=== PATIENT | male | born 1950 | race Caucasian/White ===

== ENCOUNTER 2021-01-18 15:49 | Outpatient (CLI) | payer MEDICARE ==
[2021-01-18 17:45] LABS: Hemoglobin 12.8 g/dL (13.5-17.5); Mean Corpuscular Hemoglobin 29.8 pg (27.0-33.0); Mean Corpuscular Volume 85.3 fl (81.2-95.1); Mean Platelet Volume 9.7 fl (7.4-10.4); Platelet Count 257 10x3/uL (150-450); RBC Distribution Width 12.6 % (11.5-14.5); Red Blood Cell (RBC) Count 4.29 10x6/uL (4.32-5.72)
[2021-01-18 17:53] LABS: PTT 24.3 sec (22.0-33.0); Prothrombin Time 10.6 sec (9.5-12.1)
[2021-01-19 08:18] LABS: SARS-CoV-2 PCR by NAA Not Detected (NotDetected)
== END 2021-01-18 15:50 | disposition home or self-care (01) ==
LOC: LABBT 15:49
PROVIDERS: ATTEND Neurological Surgery
DX: Z01.818 Encounter for other preprocedural examination (principal); Z20.822 Contact with and (suspected) exposure to COVID-19
CPT/HCPCS: 85027; 85610; 85730; 93005; U0003; U0005; 93010

== ENCOUNTER 2021-01-21 07:10 | Inpatient (IN) | payer MEDICARE ==
[2021-01-20 14:37] VITALS: BMI 33.3
[2021-01-21] MEDS ORDERED: ceFAZolin 2 GM/DEX 5% 100 ML BAG ONE (07:38)
[2021-01-21] MEDS ORDERED: Thrombin 5000 UNITS/5 ML VIAL ONE (09:20)
[2021-01-21] MEDS ORDERED: EPINEPHrine 1 MG/ML AMP ONE (09:20)
[2021-01-21] MEDS ORDERED: Bupivacaine PF 0.5% 30 ML VIAL ONE (09:20)
[2021-01-21] MEDS ORDERED: Neomycin-Polymyxin 1 ML AMP ONE (09:20)
[2021-01-21] MEDS ORDERED: HYDROcodone/Acetaminophen 10/325 mg Tablet PO PRN (09:42)
[2021-01-21] MEDS ORDERED: tiZANidine HCl 4 MG TAB PO PRN (09:42)
[2021-01-21] MEDS ORDERED: Promethazine HCl 12.5 MG SUPP PR PRN (09:42)
[2021-01-21] MEDS ORDERED: Mag-Al 1200 mg/1200 mg/30 ML UDCUP PO PRN (09:42)
[2021-01-21] MEDS ORDERED: Acetaminophen/Codeine 30-300mg Tablet PO PRN (09:42)
[2021-01-21] MEDS ORDERED: HYDROcodone/Acetaminophen 7.5/325 mg Tablet PO PRN (09:42)
[2021-01-21] MEDS ORDERED: diphenhydrAMINE 25 MG CAP PO PRN (09:42)
[2021-01-21] MEDS ORDERED: Ondansetron PF 4 MG/2 ML Vial IVP PRN (09:42)
[2021-01-21] MEDS ORDERED: Morphine 2 MG/ML VIAL SLOW IVP PRN (09:42)
[2021-01-21] MEDS ORDERED: Promethazine HCl 25 MG/ML VIAL IM PRN ×2 (09:42→16:00)
[2021-01-21] MEDS ORDERED: Bisacodyl 10 MG SUPP PR PRN (09:42)
[2021-01-21] MEDS ORDERED: Fentanyl 100 MCG/2 ML VIAL ONE (09:57)
[2021-01-21] MEDS ORDERED: Ketorolac Tromethamine 30 MG/ML VIAL ONE (10:11)
[2021-01-21] MEDS ORDERED: Dexamethasone 20 MG/5 ML VIAL ONE (10:11)
[2021-01-21] MEDS ORDERED: Lidocaine 2% PF 5 ML VIAL ONE (10:11)
[2021-01-21] MEDS ORDERED: Ondansetron PF 4 MG/2 ML Vial ONE (10:11)
[2021-01-21] MEDS ORDERED: PROPOFOL 200 MG/20 ML VIAL ONE (10:11)
[2021-01-21] MEDS ORDERED: Rocuronium Bromide 10 MG/ML (10ML VIAL) ONE (10:11)
[2021-01-21] MEDS ORDERED: PHENYLEPHRINE-NS 100 MCG/ML 10 ML SYRINGE ONE ×2 (10:11→14:55)
[2021-01-21] MEDS ORDERED: diphenhydrAMINE 50 MG/ML VIAL ONE (10:11)
[2021-01-21] MEDS ORDERED: Phenylephrine 10 MG/ML VIAL ONE ×2 (12:00→12:21)
[2021-01-21] MEDS ORDERED: Morphine 10 MG/ML VIAL ONE (12:07)
[2021-01-21] MEDS ORDERED: Albumin 5% 500 ML ONE (12:24)
[2021-01-21] MEDS ORDERED: SUGAMMADEX SODIUM 200 MG/2 ML VIAL ONE ×2 (14:31→14:45)
[2021-01-21] MEDS ORDERED: Promethazine HCl 25 MG/ML VIAL IVPB PRN (16:00)
[2021-01-21] MEDS ORDERED: ceFAZolin Sodium/D5W 2 GM in Premix Bag 1 BAG IVPB SCH (16:00)
[2021-01-21] MEDS ORDERED: PACU-Morphine 4MG/ML VIAL SLOW IVP PRN (16:00)
[2021-01-21] MEDS ORDERED: Ondansetron HCl/PF 4 MG/2 ML Vial IVP PRN (16:00)
[2021-01-21] MEDS ORDERED: HYDROmorphone 2 MG/ML VIAL SLOW IVP PRN (16:00)
[2021-01-21] MEDS: ceFAZolin Sodium/D5W 2 GM in Premix Bag 1 BAG IVPB SCH (21:00)
[2021-01-21] MEDS: Gabapentin 300 MG CAP PO SCH (21:01)
[2021-01-21] MEDS: Lisinopril/Hydrochlorothiazide 20/25 mg Tablet PO SCH (21:02)
[2021-01-21] MEDS: metFORMIN 500 MG TAB PO SCH (21:02)
[2021-01-21] MEDS: glipiZIDE 5 MG TAB PO SCH (21:02)
[2021-01-21] MEDS: Alogliptin 25 MG TAB PO SCH (21:54)
[2021-01-22] MEDS: traMADol HCl 50 MG TAB PO PRN ×3 (01:09→16:56)
[2021-01-22] MEDS: ceFAZolin Sodium/D5W 2 GM in Premix Bag 1 BAG IVPB SCH (05:17)
[2021-01-22] MEDS: glipiZIDE 5 MG TAB PO SCH ×2 (08:58→21:04)
[2021-01-22] MEDS: metFORMIN 500 MG TAB PO SCH ×2 (08:58→21:03)
[2021-01-22] MEDS: Acetaminophen 325 MG TAB PO PRN ×2 (08:58→16:57)
[2021-01-22] MEDS ORDERED: Dextrose 50% Abboject 50 ML SYRINGE SLOW IVP PRN (12:57)
[2021-01-22] MEDS ORDERED: Dextrose 5% in Water 1,000 ML IV PRN (12:57)
[2021-01-22] MEDS: HumaLOG 300 UNITS/3 ML VIAL SC PRN (17:02)
[2021-01-22] MEDS: Gabapentin 300 MG CAP PO SCH (21:03)
[2021-01-22] MEDS: Lisinopril/Hydrochlorothiazide 20/25 mg Tablet PO SCH (21:07)
[2021-01-22] MEDS: Alogliptin 25 MG TAB PO SCH (22:35)
[2021-01-23] MEDS: traMADol HCl 50 MG TAB PO PRN ×2 (05:19→11:02)
[2021-01-23] MEDS ORDERED: Polyethylene Glycol 3350 17 GM Packet PO PRN (07:36)
[2021-01-23] MEDS: metFORMIN 500 MG TAB PO SCH (08:13)
[2021-01-23] MEDS: glipiZIDE 5 MG TAB PO SCH (08:13)
[2021-01-23] MEDS: HumaLOG 300 UNITS/3 ML VIAL SC PRN (12:16)
[2021-01-23 12:20] VITALS: BP 104/65; TEMP 98.2
== END 2021-01-23 14:25 | DRG 516 ==
LOC: SDC 07:10 → SURG B 09:42
PROVIDERS: ADMIT Neurological Surgery; ATTEND Neurological Surgery
PROC: 01NB0ZZ Release Lumbar Nerve, Open Approach (ICD-10-PCS; principal; 2021-01-21)
DX: M48.062 Spinal stenosis, lumbar region with neurogenic claudication (principal); G99.2 Myelopathy in diseases classified elsewhere; G82.20 Paraplegia, unspecified; M71.38 Other bursal cyst, other site; E11.9 Type 2 diabetes mellitus without complications; M19.90 Unspecified osteoarthritis, unspecified site; G89.29 Other chronic pain; I10 Essential (primary) hypertension; M16.10 Unilateral primary osteoarthritis, unspecified hip; Z98.890 Other specified postprocedural states; Z79.899 Other long term (current) drug therapy; Z79.84 Long term (current) use of oral hypoglycemic drugs; Z82.3 Family history of stroke; Z87.891 Personal history of nicotine dependence
CPT/HCPCS: 36415; 36416; 76000; 86850; 86900; 86901; 88304; J0171; J1100; J1200; J1815; J1885; J2001; J2270; J2370; J2405; J2704; J3010; J3370; P9045; S0020

== ENCOUNTER 2021-02-10 14:17 | Outpatient (CLI) | payer MEDICARE | END 2021-02-10 14:18 | disposition home or self-care (01) | LOC: TBSIIMAG 14:17 | PROVIDERS: ATTEND Neurological Surgery | DX: M48.062 Spinal stenosis, lumbar region with neurogenic claudication (principal); M51.36 Other intervertebral disc degeneration, lumbar region; M47.816 Spondylosis without myelopathy or radiculopathy, lumbar region; M48.07 Spinal stenosis, lumbosacral region; M51.34 Other intervertebral disc degeneration, thoracic region; Z98.890 Other specified postprocedural states | CPT/HCPCS: 72148 ==

== ENCOUNTER 2021-02-13 12:38 | Emergency (ER) | payer MEDICARE ==
[2021-02-13] MEDS ORDERED: Acetaminophen 500 MG TAB ONE (13:18)
[2021-02-13 13:46] LABS: #Lymphocytes 0.7 thou/uL (1.20-3.40); #Monocytes 0.4 thou/uL (0.11-0.59); #Neutrophils 7.3 thou/uL (1.40-6.50); %Basophils 0.1 % (0.0-1.0); %Eosinophils 0.3 % (0.0-10.0); %Lymphocytes 8.3 % (21.0-51.0); %Monocytes 4.3 % (0.0-10.0); Hemoglobin 10.2 g/dL (14.0-18.0); Mean Corpuscular HGB CONC 35.5 g/dL (32.0-36.0); Mean Corpuscular Hemoglobin 30.6 pg (27.0-31.0); Mean Corpuscular Volume 86.1 fL (78.0-98.0); Mean Platelet Volume 6.4 fL (7.4-10.4); Platelet Count 379 thou/uL (130-400); RBC Distribution Width 12.1 % (11.5-14.5); Red Blood Cell (RBC) Count 3.33 mill/uL (4.70-6.10); White Blood Cell (WBC) Count 8.4 thou/uL (4.8-10.8)
[2021-02-13] MEDS ORDERED: Morphine 10 MG/ML VIAL ONE (13:51)
[2021-02-13 13:57] LABS: ALT (SGPT) 26 U/L (8-55); AST (SGOT) 16 U/L (5-34); Albumin 3.8 g/dL (3.4-4.8); Alkaline Phosphatase 71 U/L (40-110); Anion Gap 16 mmol/L (10-20); BUN (Urea Nitrogen) 43 mg/dL (8.4-25.7); Bilirubin, Total 0.5 mg/dL (0.2-1.2); Calc. Creatinine Clearance 0 mL/min (70-130); Calcium 9.2 mg/dL (7.8-10.44); Carbon Dioxide 24 mmol/L (23-31); Chloride 95 mmol/L (98-107); Globulin 3.1 g/dL (2.4-3.5); Glucose 178 mg/dL (80-115); Potassium 4.7 mmol/L (3.5-5.1); Protein, Total 6.9 g/dL (5.8-8.1); Sodium 130 mmol/L (136-145)
== END 2021-02-13 17:00 | disposition home or self-care (01) ==
LOC: ERS 12:38
DX: M51.36 Other intervertebral disc degeneration, lumbar region (principal); N31.9 Neuromuscular dysfunction of bladder, unspecified; R15.9 Full incontinence of feces; I10 Essential (primary) hypertension; E11.9 Type 2 diabetes mellitus without complications; Z87.891 Personal history of nicotine dependence; Z79.84 Long term (current) use of oral hypoglycemic drugs; Z79.899 Other long term (current) drug therapy
CPT/HCPCS: 72146; 72148; 80053; 85025; 96374; J2270

== ENCOUNTER 2021-02-24 13:38 | Inpatient (IN) | payer MEDICARE ==
[2021-02-24] MEDS ORDERED: Dextrose 50% Abboject 50 ML SYRINGE SLOW IVP PRN (18:40)
[2021-02-24] MEDS ORDERED: Dextrose 5% in Water 1,000 ML IV PRN (18:40)
[2021-02-24] MEDS ORDERED: HYDROcodone/Acetaminophen 10/325 mg Tablet PO PRN (18:42)
[2021-02-24] MEDS ORDERED: Senokot S 8.6-50 MG TAB PO PRN (18:42)
[2021-02-24] MEDS ORDERED: Acetaminophen 325 MG TAB PO PRN (18:42)
[2021-02-24 19:15] LABS: #Lymphocytes 0.9 thou/uL (1.20-3.40); #Monocytes 0.7 thou/uL (0.11-0.59); #Neutrophils 7.2 thou/uL (1.40-6.50); %Basophils 0.2 % (0.0-1.0); %Eosinophils 0.1 % (0.0-10.0); %Lymphocytes 9.9 % (21.0-51.0); %Monocytes 7.9 % (0.0-10.0); %Neutrophils 81.8 % (42.0-75.0); Hemoglobin 10.6 g/dL (14.0-18.0); Mean Corpuscular HGB CONC 35.2 g/dL (32.0-36.0); Mean Corpuscular Hemoglobin 30.6 pg (27.0-31.0); Mean Corpuscular Volume 87.1 fL (78.0-98.0); Mean Platelet Volume 7.3 fL (7.4-10.4); Platelet Count 209 thou/uL (130-400); Red Blood Cell (RBC) Count 3.48 mill/uL (4.70-6.10); White Blood Cell (WBC) Count 8.8 thou/uL (4.8-10.8)
[2021-02-24 19:33] LABS: ALT (SGPT) 16 U/L (8-55); AST (SGOT) 10 U/L (5-34); Albumin 3.2 g/dL (3.4-4.8); Alkaline Phosphatase 69 U/L (40-110); Anion Gap 13 mmol/L (10-20); BUN (Urea Nitrogen) 67 mg/dL (8.4-25.7); Bilirubin, Total 0.6 mg/dL (0.2-1.2); Calc. Creatinine Clearance 64 mL/min (70-130); Carbon Dioxide 21 mmol/L (23-31); Chloride 97 mmol/L (98-107); Globulin 2.4 g/dL (2.4-3.5); Glucose 295 mg/dL (80-115); Potassium 4.6 mmol/L (3.5-5.1); Protein, Total 5.6 g/dL (5.8-8.1); Sodium 126 mmol/L (136-145)
[2021-02-24] MEDS ORDERED: Enoxaparin Sodium 40 MG/0.4 ML SYRINGE SC SCH (21:00)
[2021-02-24] MEDS: Sodium Chloride 0.9% 1,000 ML IV SCH (21:43)
[2021-02-24] MEDS: HumaLOG 300 UNITS/3 ML VIAL SC PRN (21:53)
[2021-02-24] MEDS ORDERED: Gabapentin 300 MG CAP PO SCH (22:00)
[2021-02-25 00:34] LABS: Anion Gap 10 mmol/L (10-20); BUN (Urea Nitrogen) 64 mg/dL (8.4-25.7); Calc. Creatinine Clearance 74 mL/min (70-130); Calcium 8.2 mg/dL (7.8-10.44); Carbon Dioxide 24 mmol/L (23-31); Chloride 98 mmol/L (98-107); Glucose 224 mg/dL (80-115); Potassium 4.6 mmol/L (3.5-5.1); Sodium 127 mmol/L (136-145)
[2021-02-25 04:12] LABS: Bacteria/HPF 4+ HPF (None Seen); Bilirubin Negative (Negative); Blood, Urine 2+ (Negative); Clarity Clear (Clear); Glucose, Urine (Dipstick) Normal (Negative); Ketone, Urine Negative (Negative); Leukocyte 25 Leu/uL (Negative); Nitrite Negative (Negative); Protein, Urine (Dipstick) Negative (Neg-Trace); Specific Gravity, Urine 1.013 (1.002-1.036); Squamous Epithelial None Seen HPF (0-3); Urobilinogen Normal mg/dL (Less than 2)
[2021-02-25 06:30] LABS: #Monocytes 0.6 thou/uL (0.11-0.59); %Basophils 0.6 % (0.0-1.0); %Eosinophils 0.5 % (0.0-10.0); %Monocytes 9.1 % (0.0-10.0); %Neutrophils 74.8 % (42.0-75.0); Mean Corpuscular HGB CONC 34.1 g/dL (32.0-36.0); Mean Corpuscular Hemoglobin 29.9 pg (27.0-31.0); Mean Corpuscular Volume 87.7 fL (78.0-98.0); Mean Platelet Volume 7.3 fL (7.4-10.4); Platelet Count 203 thou/uL (130-400); RBC Distribution Width 12.9 % (11.5-14.5); Red Blood Cell (RBC) Count 3.34 mill/uL (4.70-6.10); White Blood Cell (WBC) Count 6.7 thou/uL (4.8-10.8)
[2021-02-25 06:36] LABS: Hemoglobin A1c 6.9 % (4.0-6.0)
[2021-02-25 06:53] LABS: Anion Gap 11 mmol/L (10-20); BUN (Urea Nitrogen) 54 mg/dL (8.4-25.7); Calc. Creatinine Clearance 86 mL/min (70-130); Calcium 8.3 mg/dL (7.8-10.44); Carbon Dioxide 23 mmol/L (23-31); Chloride 99 mmol/L (98-107); Glucose 187 mg/dL (80-115); Iron 36 ug/dL (65-175); Iron Binding Capacity, Total 241 mcg/dL (261-462); Potassium 4.7 mmol/L (3.5-5.1); Sodium 128 mmol/L (136-145)
[2021-02-25] MEDS: Polyethylene Glycol 3350 17 GM Packet PO SCH (08:44)
[2021-02-25] MEDS: HYDROcodone/Acetaminophen 10/325 mg Tablet PO PRN ×2 (08:45→16:56)
[2021-02-25] MEDS: Enoxaparin Sodium 30 MG/0.3 ML SYRINGE SC SCH (08:45)
[2021-02-25] MEDS ORDERED: Gabapentin 300 MG CAP PO SCH ×2 (09:45→21:00)
[2021-02-25] MEDS ORDERED: Lidocaine 5% Patch TD SCH (09:45)
[2021-02-25] MEDS: Lidocaine 5% Patch TD SCH ×2 (10:45→10:49)
[2021-02-25] MEDS: Sodium Chloride 0.9% 1,000 ML IV SCH (10:48)
[2021-02-25] MEDS ORDERED: Iron, Sodium Ferric Gluconate 250 MG in Sodium Chloride 0.9% 100 ML IVPB SCH (13:45)
[2021-02-25] MEDS ORDERED: Iron, Sodium Ferric Gluconate 250 MG in Sodium Chloride 0.9% 250 ML 250 ML IVPB SCH (14:00)
[2021-02-25] MEDS ORDERED: Morphine 4 MG/ML VIAL SLOW IVP SCH (14:45)
[2021-02-25] MEDS: Gabapentin 300 MG CAP PO SCH ×2 (16:53→21:45)
[2021-02-25] MEDS: HumaLOG 300 UNITS/3 ML VIAL SC PRN (17:30)
[2021-02-25] MEDS: Transdermal Patch Removal TOP SCH (21:45)
[2021-02-26] MEDS: HYDROcodone/Acetaminophen 10/325 mg Tablet PO PRN (03:32)
[2021-02-26] MEDS ORDERED: Fentanyl 100 MCG/2 ML VIAL ONE ×5 (09:37→17:41)
[2021-02-26] MEDS ORDERED: Phenylephrine 10 MG/ML VIAL ONE (09:38)
[2021-02-26] MEDS ORDERED: PROPOFOL 40 ML ONE (09:38)
[2021-02-26] MEDS ORDERED: ePHEDrine 50 MG/ML VIAL ONE ×2 (10:28→14:06)
[2021-02-26] MEDS ORDERED: PROPOFOL 200 MG/20 ML VIAL ONE ×2 (10:28→14:06)
[2021-02-26] MEDS ORDERED: PHENYLEPHRINE-NS 100 MCG/ML 10 ML SYRINGE ONE ×3 (10:28→15:58)
[2021-02-26] MEDS ORDERED: Ondansetron PF 4 MG/2 ML Vial ONE ×2 (10:28→14:06)
[2021-02-26] MEDS ORDERED: Lidocaine 1% PF 5 ML VIAL ONE ×2 (10:28→14:06)
[2021-02-26] MEDS: Gabapentin 300 MG CAP PO SCH ×3 (13:30→21:04)
[2021-02-26] MEDS: Ferrous Sulfate 325 MG TAB PO SCH (13:30)
[2021-02-26] MEDS: Lidocaine 5% Patch TD SCH (13:30)
[2021-02-26] MEDS: Polyethylene Glycol 3350 17 GM Packet PO SCH (13:31)
[2021-02-26] MEDS ORDERED: HYDROmorphone 0.5 MG/0.5 ML SYRINGE ONE (13:32)
[2021-02-26] MEDS ORDERED: EPINEPHrine 1 MG/ML AMP ONE (13:49)
[2021-02-26] MEDS ORDERED: Bupivacaine PF 0.5% 30 ML VIAL ONE (13:49)
[2021-02-26] MEDS ORDERED: Thrombin 5000 UNITS/5 ML VIAL ONE (13:50)
[2021-02-26] MEDS ORDERED: Neomycin-Polymyxin 1 ML AMP ONE ×2 (13:50→16:13)
[2021-02-26] MEDS ORDERED: Rocuronium Bromide 10 MG/ML (10ML VIAL) ONE (14:06)
[2021-02-26] MEDS ORDERED: Dexamethasone 20 MG/5 ML VIAL ONE (14:06)
[2021-02-26] MEDS: Enoxaparin Sodium 30 MG/0.3 ML SYRINGE SC SCH (15:08)
[2021-02-26] MEDS ORDERED: Rocuronium Bromide 50 MG/5 ML VIAL ONE (16:36)
[2021-02-26] MEDS ORDERED: SUGAMMADEX SODIUM 200 MG/2 ML VIAL ONE (16:45)
[2021-02-26] MEDS ORDERED: PACU-Morphine 4MG/ML VIAL SLOW IVP PRN (17:48)
[2021-02-26] MEDS ORDERED: Ondansetron HCl/PF 4 MG/2 ML Vial IVP PRN (17:48)
[2021-02-26] MEDS ORDERED: Promethazine HCl 25 MG/ML VIAL IM PRN (17:48)
[2021-02-26] MEDS ORDERED: Promethazine HCl 25 MG/ML VIAL IVPB PRN (17:48)
[2021-02-26] MEDS ORDERED: Dexamethasone 4 MG TAB PO SCH (18:00)
[2021-02-26] MEDS: Morphine 4 MG/ML VIAL SLOW IVP PRN (21:00)
[2021-02-26] MEDS: Transdermal Patch Removal TOP SCH (21:06)
[2021-02-26] MEDS ORDERED: Cepastat Lozenges 1 LOZ PO PRN (22:15)
[2021-02-27] MEDS: HYDROcodone/Acetaminophen 10/325 mg Tablet PO PRN ×2 (00:13→12:48)
[2021-02-27] MEDS: Dexamethasone 4 MG TAB PO SCH ×5 (00:41→23:58)
[2021-02-27] MEDS: Morphine 4 MG/ML VIAL SLOW IVP PRN ×4 (02:53→23:59)
[2021-02-27 06:54] LABS: #Lymphocytes 0.7 thou/uL (1.20-3.40); #Monocytes 0.4 thou/uL (0.11-0.59); #Neutrophils 6.8 thou/uL (1.40-6.50); %Eosinophils 0.2 % (0.0-10.0); %Lymphocytes 8.7 % (21.0-51.0); %Neutrophils 86.1 % (42.0-75.0); Hemoglobin 9.4 g/dL (14.0-18.0); Mean Corpuscular HGB CONC 34.4 g/dL (32.0-36.0); Mean Corpuscular Hemoglobin 30.3 pg (27.0-31.0); Mean Corpuscular Volume 87.9 fL (78.0-98.0); Platelet Count 216 thou/uL (130-400); RBC Distribution Width 12.8 % (11.5-14.5); Red Blood Cell (RBC) Count 3.09 mill/uL (4.70-6.10); White Blood Cell (WBC) Count 7.9 thou/uL (4.8-10.8)
[2021-02-27 07:03] LABS: Anion Gap 11 mmol/L (10-20); BUN (Urea Nitrogen) 26 mg/dL (8.4-25.7); Calc. Creatinine Clearance 104 mL/min (70-130); Calcium 8.7 mg/dL (7.8-10.44); Carbon Dioxide 25 mmol/L (23-31); Chloride 102 mmol/L (98-107); Glucose 231 mg/dL (80-115); Potassium 5.4 mmol/L (3.5-5.1); Sodium 133 mmol/L (136-145)
[2021-02-27] MEDS: HumaLOG 300 UNITS/3 ML VIAL SC PRN ×4 (07:06→21:52)
[2021-02-27] MEDS: Polyethylene Glycol 3350 17 GM Packet PO SCH (08:24)
[2021-02-27] MEDS: Gabapentin 300 MG CAP PO SCH ×3 (08:26→21:51)
[2021-02-27] MEDS: Ferrous Sulfate 325 MG TAB PO SCH (08:27)
[2021-02-27] MEDS: Baclofen 10 MG TAB PO PRN (11:09)
[2021-02-27 14:50] LABS: Anion Gap 14 mmol/L (10-20); BUN (Urea Nitrogen) 26 mg/dL (8.4-25.7); Calc. Creatinine Clearance 94 mL/min (70-130); Calcium 8.1 mg/dL (7.8-10.44); Carbon Dioxide 23 mmol/L (23-31); Chloride 100 mmol/L (98-107); Glucose 326 mg/dL (80-115); Sodium 132 mmol/L (136-145)
[2021-02-27] MEDS ORDERED: NPH, Human Insulin Isophane 300 UNIT/3 ML VIAL SC SCH (15:15)
[2021-02-27] MEDS: glipiZIDE 5 MG TAB PO SCH (16:56)
[2021-02-27] MEDS: Folic Acid 1 MG TAB PO SCH (21:51)
[2021-02-27] MEDS: Cyanocobalamin (Vitamin B-12) 1,000 MCG TAB PO SCH (21:51)
[2021-02-27] MEDS: Cholecalciferol 1,000 UNITS (25 MCG) TAB PO SCH (21:51)
[2021-02-27] MEDS: Transdermal Patch Removal TOP SCH (21:52)
[2021-02-27] MEDS: Multivit, Therapeutic 1 TAB PO SCH (21:52)
[2021-02-28] MEDS: Dexamethasone 4 MG TAB PO SCH ×3 (05:35→17:07)
[2021-02-28] MEDS: HumaLOG 300 UNITS/3 ML VIAL SC PRN ×4 (06:06→21:31)
[2021-02-28 06:40] LABS: #Lymphocytes 0.8 thou/uL (1.20-3.40); #Monocytes 0.4 thou/uL (0.11-0.59); #Neutrophils 7.4 thou/uL (1.40-6.50); %Lymphocytes 9.4 % (21.0-51.0); %Monocytes 4.6 % (0.0-10.0); %Neutrophils 85.9 % (42.0-75.0); Mean Corpuscular HGB CONC 34.1 g/dL (32.0-36.0); Mean Corpuscular Hemoglobin 30.3 pg (27.0-31.0); Mean Corpuscular Volume 88.9 fL (78.0-98.0); Mean Platelet Volume 7.2 fL (7.4-10.4); Platelet Count 216 thou/uL (130-400); RBC Distribution Width 12.6 % (11.5-14.5); Red Blood Cell (RBC) Count 2.98 mill/uL (4.70-6.10); White Blood Cell (WBC) Count 8.6 thou/uL (4.8-10.8)
[2021-02-28 06:50] LABS: Phosphorus 2.4 mg/dL (2.3-4.7)
[2021-02-28 06:52] LABS: Anion Gap 11 mmol/L (10-20); BUN (Urea Nitrogen) 22 mg/dL (8.4-25.7); Calc. Creatinine Clearance 120 mL/min (70-130); Calcium 8.4 mg/dL (7.8-10.44); Carbon Dioxide 26 mmol/L (23-31); Chloride 101 mmol/L (98-107); Glucose 236 mg/dL (80-115); Magnesium 1.8 mg/dL (1.6-2.6); Potassium 4.7 mmol/L (3.5-5.1); Sodium 133 mmol/L (136-145)
[2021-02-28] MEDS: Ferrous Sulfate 325 MG TAB PO SCH (08:07)
[2021-02-28] MEDS: glipiZIDE 5 MG TAB PO SCH ×2 (08:07→16:03)
[2021-02-28] MEDS: HYDROcodone/Acetaminophen 10/325 mg Tablet PO PRN (08:11)
[2021-02-28] MEDS: Folic Acid 1 MG TAB PO SCH ×2 (08:13→21:29)
[2021-02-28] MEDS: Gabapentin 300 MG CAP PO SCH ×3 (08:13→21:29)
[2021-02-28] MEDS: Polyethylene Glycol 3350 17 GM Packet PO SCH (08:14)
[2021-02-28] MEDS: Lidocaine 5% Patch TD SCH (08:14)
[2021-02-28] MEDS ORDERED: Magnesium 2 GM/50 ML 2 GM in Premix Bag 1 BAG IVPB SCH (08:30)
[2021-02-28] MEDS ORDERED: NPH, Human Insulin Isophane 300 UNIT/3 ML VIAL SC SCH (09:00)
[2021-02-28] MEDS ORDERED: Multivit, Therapeutic 1 TAB PO SCH (09:00)
[2021-02-28] MEDS ORDERED: Polyethylene Glycol 3350 17 GM Packet PO PRN (11:35)
[2021-02-28] MEDS: Baclofen 10 MG TAB PO PRN (16:02)
[2021-02-28] MEDS: NPH, Human Insulin Isophane 300 UNIT/3 ML VIAL SC SCH (16:55)
[2021-02-28] MEDS: HYDROcodone/Acetaminophen 5/325 mg Tablet PO PRN (19:06)
[2021-02-28] MEDS: Cyanocobalamin (Vitamin B-12) 1,000 MCG TAB PO SCH (21:28)
[2021-02-28] MEDS: Cholecalciferol 1,000 UNITS (25 MCG) TAB PO SCH (21:28)
[2021-02-28] MEDS: Alogliptin 25 MG TAB PO SCH (21:28)
[2021-02-28] MEDS: Multivit, Therapeutic 1 TAB PO SCH (21:29)
[2021-02-28] MEDS: Transdermal Patch Removal TOP SCH (21:30)
[2021-03-01] MEDS: Dexamethasone 4 MG TAB PO SCH ×5 (00:30→23:48)
[2021-03-01] MEDS: HYDROcodone/Acetaminophen 5/325 mg Tablet PO PRN (05:37)
[2021-03-01] MEDS ORDERED: Dexamethasone 4 MG TAB PO SCH (06:00)
[2021-03-01 06:15] LABS: #Lymphocytes 1.7 thou/uL (1.20-3.40); #Monocytes 0.6 thou/uL (0.11-0.59); #Neutrophils 5.9 thou/uL (1.40-6.50); %Eosinophils 0.5 % (0.0-10.0); %Lymphocytes 21.1 % (21.0-51.0); %Monocytes 7.6 % (0.0-10.0); %Neutrophils 70.8 % (42.0-75.0); Mean Corpuscular HGB CONC 34.7 g/dL (32.0-36.0); Mean Corpuscular Hemoglobin 30.5 pg (27.0-31.0); Mean Corpuscular Volume 88.1 fL (78.0-98.0); Mean Platelet Volume 6.9 fL (7.4-10.4); Platelet Count 206 thou/uL (130-400); RBC Distribution Width 12.4 % (11.5-14.5); Red Blood Cell (RBC) Count 2.95 mill/uL (4.70-6.10); White Blood Cell (WBC) Count 8.3 thou/uL (4.8-10.8)
[2021-03-01 06:37] LABS: Anion Gap 10 mmol/L (10-20); BUN (Urea Nitrogen) 23 mg/dL (8.4-25.7); Calc. Creatinine Clearance 127 mL/min (70-130); Calcium 8.2 mg/dL (7.8-10.44); Carbon Dioxide 27 mmol/L (23-31); Chloride 100 mmol/L (98-107); Glucose 193 mg/dL (80-115); Potassium 4.3 mmol/L (3.5-5.1); Sodium 133 mmol/L (136-145)
[2021-03-01] MEDS ORDERED: NPH, Human Insulin Isophane 300 UNIT/3 ML VIAL SC SCH (07:30)
[2021-03-01] MEDS: glipiZIDE 5 MG TAB PO SCH ×2 (08:13→16:58)
[2021-03-01] MEDS: Ferrous Sulfate 325 MG TAB PO SCH (08:13)
[2021-03-01] MEDS: Gabapentin 300 MG CAP PO SCH ×3 (08:14→20:20)
[2021-03-01] MEDS: Folic Acid 1 MG TAB PO SCH ×2 (08:14→20:20)
[2021-03-01] MEDS: Baclofen 10 MG TAB PO PRN (08:41)
[2021-03-01] MEDS: Lidocaine 5% Patch TD SCH (11:10)
[2021-03-01] MEDS: Morphine 4 MG/ML VIAL SLOW IVP PRN (11:14)
[2021-03-01] MEDS: HumaLOG 300 UNITS/3 ML VIAL SC PRN ×3 (13:08→20:28)
[2021-03-01] MEDS: HYDROcodone/Acetaminophen 10/325 mg Tablet PO PRN ×2 (13:09→20:26)
[2021-03-01] MEDS: NPH, Human Insulin Isophane 300 UNIT/3 ML VIAL SC SCH (16:50)
[2021-03-01] MEDS ORDERED: HumaLOG 300 UNITS/3 ML VIAL SC PRN (17:02)
[2021-03-01] MEDS: Alogliptin 25 MG TAB PO SCH (20:19)
[2021-03-01] MEDS: Multivit, Therapeutic 1 TAB PO SCH (20:22)
[2021-03-01] MEDS: Cholecalciferol 1,000 UNITS (25 MCG) TAB PO SCH (20:22)
[2021-03-01] MEDS: Cyanocobalamin (Vitamin B-12) 1,000 MCG TAB PO SCH (20:23)
[2021-03-01] MEDS: Transdermal Patch Removal TOP SCH (22:11)
[2021-03-01 22:51] VITALS: BMI 30.8
[2021-03-02] MEDS: Dexamethasone 4 MG TAB PO SCH ×2 (06:13→12:55)
[2021-03-02] MEDS: HYDROcodone/Acetaminophen 5/325 mg Tablet PO PRN (07:29)
[2021-03-02] MEDS ORDERED: NPH, Human Insulin Isophane 300 UNIT/3 ML VIAL SC SCH ×2 (07:30→16:00)
[2021-03-02] MEDS: Baclofen 10 MG TAB PO PRN ×2 (07:30→16:19)
[2021-03-02] MEDS: glipiZIDE 5 MG TAB PO SCH ×2 (07:38→15:51)
[2021-03-02] MEDS: Gabapentin 300 MG CAP PO SCH ×2 (08:46→15:51)
[2021-03-02] MEDS: Folic Acid 1 MG TAB PO SCH (08:46)
[2021-03-02] MEDS: Ferrous Sulfate 325 MG TAB PO SCH (08:47)
[2021-03-02] MEDS: Lidocaine 5% Patch TD SCH (08:47)
[2021-03-02 12:43] VITALS: TEMP 98.2
[2021-03-02] MEDS: HumaLOG 300 UNITS/3 ML VIAL SC PRN (12:54)
[2021-03-02] MEDS: HYDROcodone/Acetaminophen 10/325 mg Tablet PO PRN (13:32)
[2021-03-02 15:36] VITALS: BP 144/76
[2021-03-02] MEDS ORDERED: Lisinopril 10 MG TAB PO SCH (21:00)
[2021-03-02] MEDS ORDERED: Amlodipine 5 MG TAB PO SCH (21:00)
[2021-03-04] MEDS ORDERED: Dexamethasone 4 MG TAB PO SCH (23:59)
[2021-03-07] MEDS ORDERED: Dexamethasone 4 MG TAB PO SCH (23:59)
[2021-03-10] MEDS ORDERED: Dexamethasone 4 MG TAB PO SCH (09:00)
== END 2021-03-02 16:49 | DRG 519 ==
LOC: T4-A 13:38 → OBSVTOIN 18:36
PROVIDERS: ADMIT Family Medicine; ATTEND Internal Medicine
PROC: 00NX0ZZ Release Thoracic Spinal Cord, Open Approach (ICD-10-PCS; principal; 2021-02-26)
DX: M48.04 Spinal stenosis, thoracic region (principal); G99.2 Myelopathy in diseases classified elsewhere; E22.2 Syndrome of inappropriate secretion of antidiuretic hormone; N17.9 Acute kidney failure, unspecified; E87.2 Acidosis; E46 Unspecified protein-calorie malnutrition; E44.0 Moderate protein-calorie malnutrition; R33.9 Retention of urine, unspecified; N18.2 Chronic kidney disease, stage 2 (mild); I95.9 Hypotension, unspecified; I12.9 Hypertensive chronic kidney disease with stage 1 through stage 4 chronic kidney disease, or unspecified chronic kidney disease; E87.5 Hyperkalemia; D53.9 Nutritional anemia, unspecified; E11.22 Type 2 diabetes mellitus with diabetic chronic kidney disease; N31.9 Neuromuscular dysfunction of bladder, unspecified; M16.10 Unilateral primary osteoarthritis, unspecified hip; L89.152 Pressure ulcer of sacral region, stage 2; Z98.890 Other specified postprocedural states; Z87.440 Personal history of urinary (tract) infections; Z79.899 Other long term (current) drug therapy; Z79.84 Long term (current) use of oral hypoglycemic drugs; Z79.4 Long term (current) use of insulin; Z68.30 Body mass index [BMI] 30.0-30.9, adult; Z87.891 Personal history of nicotine dependence
CPT/HCPCS: 36415; 36416; 70551; 72141; 72158; 76000; 80048; 80053; 81001; 82728; 83036; 83540; 83550; 83735; 83935; 84100; 84300; 85025; 88304; J0171; J1100; J1170; J1650; J1815; J2270; J2370; J2405; J2704; J2916; J3010; J3370; J3475; J3490; J7050; J8540; S0020